=== PATIENT | female | born 1985 | race African-American/Black ===

== ENCOUNTER 2018-11-28 22:04 | Emergency (ER) | payer OTHER ==
[~2018-11-28] VITALS: Ht 149.9 cm; Wt 68.2 kg
[2018-11-28 22:16] VITALS: BP 132/77; PULSE 88; RESP 18; Ht 149.9 cm; Wt 68.2 kg
[2018-11-28] MEDS ORDERED: KETOROLAC 30 MG INJ IM STA (22:58)
[2018-11-29] MEDS ORDERED: IBUP-1542 PO (02:32)
[2018-11-29] MEDS ORDERED: ACET-141 PO (02:32)
--- NOTE | 2018-11-29 02:36 | ERD ---
ER Documentation Chief Complaint Chief Complaint left leg pain x 2 weeks, denies trauma ROS All systems reviewed and are negative except as per history of present illness. Medications Home Meds Active Scripts Ibuprofen* (Motrin*) 600 Mg Tab, 600 MG PO Q6H PRN for PAIN AND OR ELEVATED TEMP, #30 TAB Prov:GABY BENZ DO 11/29/18 Acetaminophen* (Acetaminophen*) 500 MG Extra Strength Tablet, 500 MG PO Q4H PRN for PAIN AND OR ELEVATED TEMP, #30 TAB Prov:GABY BENZ DO 11/29/18 Allergies Allergies: Coded Allergies: No Known Drug Allergies (Verified Allergy, Unknown, 11/28/18) PMhx/Soc Medical and Surgical Hx: pt denies Medical Hx, pt denies Surgical Hx Hx Alcohol Use: No Hx Substance Use: No Hx Tobacco Use: No Smoking Status: Never smoker Physical Exam Vitals Vital Signs Date Temp Pulse Resp B/P (MAP) Pulse Ox O2 O2 Flow FiO2 Time Delivery Rate 11/28/18 98.2 88 18 132/77 99 22:16 (95) Physical Exam Const: No acute distress Head: Atraumatic Eyes: Normal Conjunctiva ENT: Normal External Ears, Nose and Mouth. Neck: Full range of motion. No meningismus. Resp: Clear to auscultation bilaterally Cardio: Regular rate and rhythm, no murmurs Abd: Soft, non tender, non distended. Normal bowel sounds Skin: No petechiae or rashes Back: No midline or flank tenderness Ext: No cyanosis, or edema Neur: Awake and alert Psych: Normal Mood and Affect Results 24 hrs Laboratory Tests Test 11/28/18 23:15 11/28/18 23:23 Urine Color YELLOW Urine Clarity SLIGHTLY CLOUDY Urine pH 7.0 Urine Specific [place] 1.030 Urine Ketones TRACE mg/dL Urine Nitrite NEGATIVE mg/dL Urine Bilirubin NEGATIVE mg/dL Urine Urobilinogen 1+ mg/dL Urine Leukocyte Esterase TRACE Soco/ul Urine Microscopic RBC 0 /HPF Urine Microscopic WBC 1 /HPF Urine Squamous Epithelial Cells FEW /HPF Urine Mucus MODERATE /HPF Urine Hemoglobin NEGATIVE mg/dL Urine Glucose NEGATIVE mg/dL Urine Total Protein NEGATIVE mg/dl POC Beta HCG, Qualitative NEGATIVE Current Medications Medications Dose Sig/Perla Start Time Status Last (Trade) Ordered Route PRN Stop Time Admin Dose Reason Admin Ketorolac 30 mg ONCE STAT 11/28/18 DC 11/28/18 Tromethamine IM 22:58 23:31 (Toradol) 11/28/18 22:59 Departure Diagnosis: Primary Impression: Left hip pain Condition: Fair Patient Instructions: Possible Causes of Low Back or Leg Pain Additional Instructions: Call your primary care doctor TOMORROW for an appointment during the next 1-2 days.See the doctor sooner or return here if your condition worsens before your appointment time. Need to get CT scan of left hip in 1-2 days. take pain medications as needed for pain GABY BENZ DO Nov 29, 2018 02:36
== END 2018-11-29 02:54 | disposition home or self-care (01) ==
LOC: FTE 22:04
DX: M25.552 Pain in left hip (principal)
CPT/HCPCS: 73510; 81001; 81025; 96372; J1885; Z7502